=== PATIENT | female | born 1970 | race Caucasian/White ===

== ENCOUNTER 2018-11-24 10:36 | Emergency (ER) | payer BC ==
[~2018-11-24] VITALS: Ht 160 cm; Wt 56.7 kg
[2018-11-24 10:45] VITALS: BP_SYST 180
[2018-11-24] MEDS ORDERED: NACL 0.9% 1,000 ML IV ONE (10:59)
--- NOTE | 2018-11-24 11:00 | NUR ---
Placed in room 01 . Placed on personnel monitor, blood pressure machine and pulse oximeter. To gown for exam. Side rails up.
--- NOTE | 2018-11-24 11:05 | NUR ---
Patient on bed, talking on cell phone. Pt came is because heart rate was rapid since last night and also had body aches. Pt has history of of lymphoma, hypothyroidism, had lymphnoes removed under right arm in 1997 and thyroidectomy in 2016. Patient also has history of sinusitis. Will continue to monitor.
[2018-11-24 11:24] LABS: BASOPHILS # (AUTO) 0.1 K/uL (0.0-0.2); EOSINOPHILS # (AUTO) 0.1 K/uL (0.0-0.4); EOSINOPHILS % (AUTO) 1.2 % (0.0-4.0); HEMATOCRIT 38.2 % (36-48); HEMOGLOBIN 12.6 g/dL (12.0-16.0); LYMPHOCYTES # (AUTO) 1.8 K/uL (1.0-5.5); LYMPHOCYTES % (AUTO) 35.9 % (20.5-51.5); MEAN CORPUSCULAR HEMOGLOBIN 31 pg (27-31); MEAN CORPUSCULAR HGB CONC 33 % (32-36); MEAN CORPUSCULAR VOLUME 94 fL (79.0-98.0); MONOCYTES # (AUTO) 0.4 K/uL (0.0-1.0); MONOCYTES % (AUTO) 8.1 % (1.7-9.3); NEUTROPHILS # (AUTO) 2.7 K/uL (1.8-7.7); NEUTROPHILS % (AUTO) 53.8 % (40.0-70.0); PLATELET COUNT (AUTO) 231 K/uL (130-430); RED BLOOD CELL COUNT(AUTO) 4.07 MIL/uL (4.2-6.2); RED CELL DISTRIBUTION WIDTH 13.6 % (9.0-15.0); WHITE BLOOD COUNT (AUTO) 5.1 K/uL (4.8-10.8)
[2018-11-24 11:35] LABS: CALCIUM 9.1 mg/dL (8.4-11.0); CREATININE 0.67 mg/dL (0.55-1.30); POTASSIUM 3.7 mmol/L (3.5-5.1)
--- NOTE | 2018-11-24 11:35 | NUR ---
ER Dr. Brambila at bedside examining patient.
[2018-11-24 11:39] LABS: PROTHROMBIN TIME 9.8 SECS (9.5-12.5)
[2018-11-24 11:40] LABS: ALBUMIN 3.6 g/dL (3.4-4.8); TOTAL BILIRUBIN 0.5 mg/dL (0.0-1.0)
--- NOTE | 2018-11-24 12:10 | NUR ---
patient had EKG, IV insertion, pt tolerated well. Pt denies pain at this time. Will continue to monitor.
[2018-11-24 13:06] LABS: FREE T4 (FREE THYROXINE) 0.7 ng/dL (0.6-1.6); THYROID STIMULATING HORMONE 11.29 uIu/mL (0.34-4.82)
[2018-11-24 13:50] LABS: BILIRUBIN,URINE NEGATIVE (NEGATIVE); BLOOD, URINE NEGATIVE (NEGATIVE); CLARITY/URINE SL HAZY (CLEAR); COLOR,URINE YELLOW (YELLOW); GLUCOSE,URINE NEGATIVE (NEGATIVE); KETONES,URINE NEGATIVE (NEGATIVE); LEUKOCYTE ESTERASE ,URINE NEGATIVE (NEGATIVE); NITRITE, URINE NEGATIVE (NEGATIVE); PH,URINE 7.5 (5.0-8.0); PROTEIN URINE NEGATIVE (NEGATIVE); UROBILINOGEN,URINE 0.2 (0.2-1.0)
[2018-11-24] MEDS ORDERED: LABETALOL 100 MG/ 20ML VIAL IVP ONE (14:15)
--- NOTE | 2018-11-24 14:26 | NUR ---
Patient in bed, no s/s of acute distress noted. Pt denies pain at this time. Patient given dose of labetalol. Will continu eto monitor.
--- NOTE | 2018-11-24 14:58 | NUR ---
Patient given written and verbal discharge instructions and verbalizes understanding. ER MD discussed with patient the results and treatment provided. Patient in stable condition. ID arm band removed. IV catheter removed intact and dressing applied, no active bleeding. Rx of labeetalol given. Patient educated on pain management and to follow up with PMD. Pain Scale 0/10. Opportunity for questions provided and answered. Medication side effect fact sheet provided.
[2018-11-24 15:02] VITALS: BP_SYST 150
== END 2018-11-24 15:02 | disposition home or self-care (01) ==
LOC: SED 10:36
DX: R00.2 Palpitations (principal); E05.90 Thyrotoxicosis, unspecified without thyrotoxic crisis or storm; R03.0 Elevated blood-pressure reading, without diagnosis of hypertension; Z85.850 Personal history of malignant neoplasm of thyroid
CPT/HCPCS: 36415; 71045; 80053; 81003; 81025; 82550; 83690; 84439; 84443; 84479; 84484; 85025; 85610; 85730; 93005; 99284; J3490; J7030

== ENCOUNTER 2021-03-29 08:46 | Emergency (ER) | payer BC ==
[~2021-03-29] VITALS: Ht 160 cm; Wt 62.6 kg
[2021-03-29 09:06] VITALS: BP_SYST 124
[2021-03-29 09:46] LABS: BASOPHILS % (AUTO) 0.5 % (0.0-2.0); EOSINOPHILS % (AUTO) 0.8 % (0.0-4.0); HEMATOCRIT 40.6 % (36-48); HEMOGLOBIN 13.5 g/dL (12.0-16.0); LYMPHOCYTES % (AUTO) 41.2 % (20.5-51.5); MEAN CORPUSCULAR HEMOGLOBIN 31 pg (27-31); MEAN CORPUSCULAR HGB CONC 33 % (32-36); MEAN CORPUSCULAR VOLUME 93 fL (79.0-98.0); MONOCYTES # (AUTO) 0.3 K/uL (0.0-1.0); MONOCYTES % (AUTO) 7.1 % (1.7-9.3); NEUTROPHILS # (AUTO) 2.4 K/uL (1.8-7.7); NEUTROPHILS % (AUTO) 50.4 % (40.0-70.0); PLATELET COUNT (AUTO) 184 K/uL (130-430); RED BLOOD CELL COUNT(AUTO) 4.37 MIL/uL (4.2-6.2); RED CELL DISTRIBUTION WIDTH 13.5 % (9.0-15.0); WHITE BLOOD COUNT (AUTO) 4.8 K/uL (4.8-10.8)
[2021-03-29 10:05] LABS: CALCIUM 8.7 mg/dL (8.4-11.0); CREATININE 0.8 mg/dL (0.55-1.30); POTASSIUM 4.1 mmol/L (3.5-5.1)
[2021-03-29 10:20] LABS: THYROID STIMULATING HORMONE 1.66 uIu/mL (0.36-3.74); TOTAL BILIRUBIN 0.6 mg/dL (0.0-1.0)
[2021-03-29 11:04] VITALS: BP_SYST 116
== END 2021-03-29 11:04 | disposition home or self-care (01) ==
LOC: SED 08:46
DX: R07.89 Other chest pain (principal); Z88.2 Allergy status to sulfonamides; Z88.8 Allergy status to other drugs, medicaments and biological substances
CPT/HCPCS: 36415; 71045; 80053; 82550; 84443; 84484; 85025; 93005; 99285